=== PATIENT | female | born 2000 | race Caucasian/White ===

== ENCOUNTER 2021-01-26 19:55 | Emergency (ER) | payer OTHER ==
[2021-01-26 20:33] LABS: BILIRUBIN,URINE NEGATIVE (NEGATIVE); GLUCOSE, URINE (UA) NEGATIVE (NEGATIVE); KETONES,URINE (UA) NEGATIVE (NEGATIVE); LEUKOCYTE ESTERASE, URINE LARGE (NEGATIVE); NITRITE,URINE NEGATIVE (NEGATIVE); OCCULT BLOOD,URINE LARGE (NEGATIVE); PH,URINE 6.5 PH (5.0-7.5); PROTEIN,URINE TRACE mg/dL (NEGATIVE); UROBILINOGEN,URINE 0.2 (NORMAL) E.U./dL (NORMAL)
[2021-01-26 20:35] LABS: CLARITY,URINE SL. CLOUDY (CLEAR); HCG UR QUAL NEGATIVE
[2021-01-26 20:38] LABS: BACTERIA,URINE Few /HPF (None Seen); RBC,URINE TNTC /HPF (0-5); SQUAMOUS EPITHELIAL CELL,UR FEW Squamous (<= Few); WBC,URINE >25 /HPF (0-5)
--- NOTE | 2021-01-26 20:59 | ED Physician Documentation ---
PD HPI FEMALE - Stated complaint Stated Complaint: CONFIRMED UTI/[facility] - Chief complaint Chief Complaint: UTI - History obtained from History obtained from: Patient - History of Present Illness Timing - onset: How many hours ago (5 hours [employer]), Today Timing - details: Abrupt onset Associated symptoms: Dysuria, Urinary frequency, Hematuria. No: Fever Contributing factors: No: Similar symptoms before: Diagnosis (UTI) Recently seen: Clinic - Additional information Additional information: c/o several hours of urinary frequency, burning dysuria, hematuria. She was evaluated at a walk-in clinic and was told she has a UTI. No medications given but rx was to be called in to her pharmacy. Unfortunately, when she went to the pharmacy, they did not have any prescriptions called in that they could find. By that time, the walk-in clinic had closed and the pharmacy was closing shortly, thus patient comes to ED. Review of Systems Constitutional: denies: Fever, Chills, Sweats GI: denies: Abdominal Pain : reports: Dysuria, Frequency, Hematuria PD PAST MEDICAL HISTORY - Past Medical History Past Medical History: No - Past Surgical History Past Surgical History: No - Present Medications Home Medications: Ambulatory Orders Medication Instructions Recorded Confirmed Nitrofurantoin [Macrobid] 100 mg PO BID #9 cap 01/26/21 Phenazopyridine HCl [Pyridium] 200 mg PO TID PRN #6 tablet 01/26/21 - Allergies Allergies/Adverse Reactions: Allergies Allergy/AdvReac Type Severity Reaction Status Date / Time No Known Drug Allergies Allergy Verified 01/26/21 20:23 - Social History Does the pt smoke?: No Smoking Status: Never smoker Does the pt drink ETOH?: No Does the pt have substance abuse?: No - Immunizations Immunizations are current?: Yes PD ED PE NORMAL - Vitals Vital signs reviewed: Yes - General General: Alert and oriented X 3, No acute distress, Well developed/nourished - Abdomen Abdomen: Soft, Non tender - Back Back: No CVA TTP Results - Vitals Vitals: Vital Signs - 24 hr 01/26/21 01/26/21 20:19 21:21 Temperature 36.7 C 36.6 C Heart Rate 104 H 85 Respiratory 16 16 Rate Blood Pressure 138/85 H 121/63 O2 Saturation 95 100 Oxygen O2 Source Room air - Labs Labs: Laboratory Tests 01/26/21 01/26/21 20:29 20:29 Urine Color LT RED Urine Clarity SL. CLOUDY Urine pH 6.5 Ur Specific [place] 1.015 Urine Protein TRACE Urine Glucose (UA) NEGATIVE Urine Ketones NEGATIVE Urine Occult Blood LARGE H Urine Nitrite NEGATIVE Urine Bilirubin NEGATIVE Urine Urobilinogen 0.2 (NORMAL) Ur Leukocyte Esterase LARGE H Urine RBC TNTC H Urine WBC >25 H Ur Squamous Epith Cells FEW Squamous Urine Bacteria Few Ur Microscopic Review INDICATED Urine Culture Comments INDICATED Urine HCG, Qual NEGATIVE PD MEDICAL DECISION MAKING - ED course Complexity details: considered differential, d/w patient ED course: HPI suggestive of UTI and UA results are consistent with this diagnosis. Given pyridium and macrobid in ED, prescriptions for these medications electronically submitted to [facility], patient also provided paper copy Departure - Departure Disposition: Home, Self Care Clinical Impression: Urinary tract infection Qualifiers: Urinary tract infection type: acute cystitis Hematuria presence: with hematuria Qualified Code(s): N30.01 - Acute cystitis with hematuria Condition: Good Instructions: ED UTI Cystitis Female Prescriptions: Nitrofurantoin [Macrobid] 100 mg PO BID #9 cap Phenazopyridine HCl [Pyridium] 200 mg PO TID PRN #6 tablet PRN Reason: dysuria Comments: Prescriptions for pyridium (helps with UTI symptoms) and nitrofurantoin (antibiotic) have been electronically submitted to [facility]. Discharge Date/Time: 01/26/21 21:23
[2021-01-26] MEDS ORDERED: PHENAZOPYRIDINE 100 MG TABLET PO STA (21:05)
[2021-01-26] MEDS ORDERED: NITROFURANTOIN MACRO 100 MG CAPSULE PO STA (21:05)
[2021-01-26 21:23] VITALS: BP 121/63
== END 2021-01-26 21:23 | disposition home or self-care (01) ==
LOC: ED 19:55
DX: N30.01 Acute cystitis with hematuria (principal)
CPT/HCPCS: 81001; 81025; 87086; 99283; A9270; 81003; 87077; 87181